=== PATIENT | male | born 1985 | race American Indian/Alaskan Native ===

== ENCOUNTER 2016-10-27 22:18 | Emergency (ER) | payer SELFPAY ==
[2016-10-28 00:19] VITALS: BP 109/75
[2016-10-28 01:54] LABS: Bilirubin,Urine NEG (Negative); Blood,Urine NEG (Negative); Ketones,Urine NEG (Negative); Leukocyte Esterase,Urine NEG (Negative); Mucus,Urine 2+ /HPF; Nitrite,Urine NEG (Negative); Protein,Urine <15 mg/dL mg/dL (Negative)
--- NOTE | 2016-10-28 02:07 | Emergency Department Report ---
HPI - General Chief Complaint: Urogenital-Male Time Seen by Provider: 10/28/16 01:17 - HPI HPI: This is a 31-year-old male presents to ED complaining of penile discharge 4 days. Patient states he had a protective sex female vital weak ago and couple days ago she was tested positive for Trichomonasis. Patient states he came in to be treated. He denies fever/ chills/abdominal pain/penile pain/scrotum pain or swelling, dysuria, or blood in his urine ED Past Medical Hx - Past Medical History Additional medical history: ear issues - Social History Smoking Status: Never Smoker Substance Use Type: None - Medications Home Medications: Home Medications Medication Instructions Recorded Confirmed Last Taken Type HYDROcodone/APAP 5-325 [[place] 1 each PO Q6HR PRN #20 tablet 07/15/15 Unknown Rx 5/325] Promethazine [Phenergan TAB] 25 mg PO Q6HR PRN #20 tab 07/15/15 Unknown Rx Neomy/Polymyx B/Hc (Otic) Soln 4 drops OTIC TID #1 bottle 02/23/16 Unknown Rx [Cortisporin (Otic) Soln] ED Review of Systems ROS: Stated complaint: GROIN PAIN/W DISCHARGE Other details as noted in HPI Constitutional: denies: chills, fever Eyes: denies: eye pain, eye discharge, vision change ENT: denies: ear pain, throat pain Respiratory: denies: cough, shortness of breath, wheezing Cardiovascular: denies: chest pain, palpitations Endocrine: no symptoms reported Gastrointestinal: denies: abdominal pain, nausea, diarrhea Genitourinary: denies: urgency, dysuria Musculoskeletal: denies: back pain, joint swelling, arthralgia Skin: denies: rash, lesions Neurological: denies: headache, weakness, paresthesias Psychiatric: denies: anxiety, depression Hematological/Lymphatic: denies: easy bleeding, easy bruising Physical Exam - Physical Exam Vital Signs: Vital Signs 10/28/16 00:17 Temperature 98.4 F Pulse Rate 64 Respiratory 18 Rate Blood Pressure 109/75 [Right] O2 Sat by Pulse 99 Oximetry Physical Exam: GENERAL: Alert and oriented x3, no apparent distress, Normal Gait, atraumatic. HEAD: Head is normocephalic and a-traumatic. LUNGS: Symetrical with respiration, No wheezing, no rales or crackles, CTAB. HEART: S1, S2 present, regular rate and rhythm without murmur, no rubs, no gallops. ABDOMEN: No organomegaly was noted,Positive bowel sounds, soft, and non- distended. . Nontender to palpation on all Quadrants, NO CVA tenderness. UROGENITAL: No scrotal mass, Scrotum non tender to palpation bilaterally, no hernia, no scars or penile discharge. SKIN: Warm and dry, No lesions, No ulceration or induration present. ED Course Vital Signs 10/28/16 00:17 Temperature 98.4 F Pulse Rate 64 Respiratory 18 Rate Blood Pressure 109/75 [Right] O2 Sat by Pulse 99 Oximetry ED Medical Decision Making - Medical Decision Making 31-year-old male presents with STD exposure. ED course: Urinanalysis and gonorrhea and Chlamydia cultures obtained. Urinalysis positive negative Patient received Flagyl 2 g. in the ED for treatment of trichomoniasis Discussed with patient possible STD due to exposure. Discussed with patient findings and treatment Discussed treatment of trichomoniasis patient is to abstain from sex 7-10 days as treatment. Discussed the follow-up with the health department for further STD testing. Patient's alert and oriented times 3. Vital signs are normal patient is in no acute discharge. Patient will be discharged home with instructions. Critical care attestation.: If time is entered above; I have spent that time in minutes in the direct care of this critically ill patient, excluding procedure time. ED Disposition Clinical Impression: STD exposure Disposition: DC-01 TO HOME OR SELFCARE Is pt being admited?: No Does the pt Need Aspirin: No Condition: Stable Instructions: Trichomoniasis (ED), Safe Sex (ED), Sexually Transmitted Diseases (ED) Referrals: PRIMARY CARE, [Primary Care Provider] - 3-5 Days [facility] [Outside] - 3-5 Days [facility] [Outside] - 3-5 Days [facility] [Outside] - 3-5 Days Forms: Work/School Release Form(ED) Time of Disposition: 02:11
[2016-10-28] MEDS ORDERED: FLAGYL PO ONE (02:08)
== END 2016-10-28 02:25 | disposition home or self-care (01) ==
LOC: ED 22:18
DX: Z20.2 Contact with and (suspected) exposure to infections with a predominantly sexual mode of transmission (principal)
CPT/HCPCS: 81001; 99283

== ENCOUNTER 2016-11-07 01:14 | Emergency (ER) | payer SELFPAY ==
[2016-11-07 01:19] VITALS: BP 121/82
--- NOTE | 2016-11-07 03:25 | Emergency Department Report ---
ED ENT HPI - General Chief complaint: Earache Stated complaint: RT EARACHE Time Seen by Provider: 11/07/16 02:47 Source: patient Mode of arrival: Ambulatory Limitations: No Limitations - History of Present Illness Initial comments: This is a 31-year-old male that presents with right ear pain x1 day. Patient describes ear pain as throbbing with a level of a 10/10. Patient denies sick contact. Denies fever, chills, decreased hearing, stiff neck, headache, CP, SOB , numbness, tingling, or abd pain. MD complaint: ear pain (right) -: Gradual, days(s) (1) Location: R ear Severity: moderate Severity scale (0 -10): 10 Quality: other (throbbing) Consistency: constant Improves with: none Worsens with: none Associated Symptoms: denies: fever, cough, gum swelling, toothache, pain with swallowing, sore throat, tinnitus, hearing loss, discharge from ear, rhinorrhea - Related Data Previous Rx's Medication Instructions Recorded Last Taken Type HYDROcodone/APAP 5-325 [[place] 1 each PO Q6HR PRN #20 tablet 07/15/15 Unknown Rx 5/325] Promethazine [Phenergan TAB] 25 mg PO Q6HR PRN #20 tab 07/15/15 Unknown Rx Neomy/Polymyx B/Hc (Otic) Soln 4 drops OTIC TID #1 bottle 02/23/16 Unknown Rx [Cortisporin (Otic) Soln] Azithromycin [Zithromax Z-ADAM] 250 mg PO DAILY #6 tablet 11/07/16 Unknown Rx Allergies Allergy/AdvReac Type Severity Reaction Status Date / Time Penicillins AdvReac Shortness Verified 03/21/14 16:23 of Breath ED Dental HPI - General Chief complaint: Earache Stated complaint: RT EARACHE Time Seen by Provider: 11/07/16 02:47 Source: patient Mode of arrival: Ambulatory Limitations: No Limitations - Related Data Previous Rx's Medication Instructions Recorded Last Taken Type HYDROcodone/APAP 5-325 [[place] 1 each PO Q6HR PRN #20 tablet 07/15/15 Unknown Rx 5/325] Promethazine [Phenergan TAB] 25 mg PO Q6HR PRN #20 tab 07/15/15 Unknown Rx Neomy/Polymyx B/Hc (Otic) Soln 4 drops OTIC TID #1 bottle 02/23/16 Unknown Rx [Cortisporin (Otic) Soln] Azithromycin [Zithromax Z-ADAM] 250 mg PO DAILY #6 tablet 11/07/16 Unknown Rx Allergies Allergy/AdvReac Type Severity Reaction Status Date / Time Penicillins AdvReac Shortness Verified 03/21/14 16:23 of Breath ED Review of Systems ROS: Stated complaint: RT EARACHE Other details as noted in HPI Constitutional: denies: chills, fever Eyes: denies: eye pain, eye discharge, vision change ENT: denies: ear pain, throat pain Respiratory: denies: cough, shortness of breath, wheezing Cardiovascular: denies: chest pain, palpitations Endocrine: no symptoms reported Gastrointestinal: denies: abdominal pain, nausea, diarrhea Genitourinary: denies: urgency, dysuria Musculoskeletal: denies: back pain, joint swelling, arthralgia Skin: denies: rash, lesions Neurological: denies: headache, weakness, paresthesias Psychiatric: denies: anxiety, depression Hematological/Lymphatic: denies: easy bleeding, easy bruising ED Past Medical Hx - Past Medical History Previous Medical History?: Yes Additional medical history: ear issues - Surgical History Past Surgical History?: No - Social History Smoking Status: Never Smoker Substance Use Type: None - Medications Home Medications: Home Medications Medication Instructions Recorded Confirmed Last Taken Type HYDROcodone/APAP 5-325 [[place] 1 each PO Q6HR PRN #20 tablet 07/15/15 Unknown Rx 5/325] Promethazine [Phenergan TAB] 25 mg PO Q6HR PRN #20 tab 07/15/15 Unknown Rx Neomy/Polymyx B/Hc (Otic) Soln 4 drops OTIC TID #1 bottle 02/23/16 Unknown Rx [Cortisporin (Otic) Soln] Azithromycin [Zithromax Z-ADAM] 250 mg PO DAILY #6 tablet 11/07/16 Unknown Rx ED Physical Exam - General Limitations: No Limitations General appearance: alert, in no apparent distress - Head Head exam: Present: atraumatic, normocephalic, normal inspection - Eye Eye exam: Present: normal appearance, PERRL, EOMI. Absent: scleral icterus, conjunctival injection, nystagmus, periorbital swelling, periorbital tenderness Pupils: Present: normal accommodation - ENT ENT exam: Present: normal orophraynx, mucous membranes moist, normal external ear exam. Absent: TM's normal bilaterally - Expanded ENT Exam Expanded TM/Canal exam: Erythema: Right TM, Bulging: Right TM, Cerumen Impaction: Right TM, Left TM Mouth exam: Present: normal external inspection. Absent: drooling, trismus, muffled voice, tongue normal, tongue elevation, laceration Teeth exam: Present: normal inspection Throat exam: Positive: normal inspection. Negative: tonsillar erythema, tonsillomegaly, tonsillar exudate, R peritonsillar mass, L peritonsillar mass - Neck Neck exam: Present: normal inspection, full ROM. Absent: tenderness, meningismus, lymphadenopathy, thyromegaly - Respiratory Respiratory exam: Present: normal lung sounds bilaterally. Absent: respiratory distress, wheezes, rales, rhonchi, stridor, chest wall tenderness, accessory muscle use, decreased breath sounds, prolonged expiratory - Cardiovascular Cardiovascular Exam: Present: regular rate, normal rhythm. Absent: systolic murmur, diastolic murmur, rubs, gallop - GI/Abdominal GI/Abdominal exam: Present: soft, normal bowel sounds. Absent: distended, tenderness, guarding, rebound, rigid, diminished bowel sounds - Rectal Rectal exam: Present: deferred - Extremities Exam Extremities exam: Present: normal inspection, full ROM, normal capillary refill. Absent: tenderness, pedal edema, joint swelling, calf tenderness - Back Exam Back exam: Present: normal inspection, full ROM. Absent: tenderness, CVA tenderness (R), CVA tenderness (L), muscle spasm, paraspinal tenderness, vertebral tenderness, rash noted - Neurological Exam Neurological exam: Present: alert, oriented X3, CN II-XII intact, normal gait - Psychiatric Psychiatric exam: Present: normal affect, normal mood - Skin Skin exam: Present: warm, dry, intact, normal color. Absent: rash ED Course Vital Signs 11/07/16 11/07/16 01:18 01:21 Temperature 98.3 F 98.3 F Pulse Rate 60 60 Respiratory 18 18 Rate Blood Pressure 121/82 Blood Pressure 121/82 [Right] O2 Sat by Pulse 98 98 Oximetry - Reevaluation(s) Reevaluation #1: 06/22/17 03:26 I used normal saline 20 ml leana ears to wash the cermun impaction and used an earwax remove and removed earwax to leana ears to evaluate TMs. ED Medical Decision Making - Medical Decision Making Ed course: This is a 31-year-old male that presents with otitis media, right 1- after my physical exam, pt received zpack due to PCN allergies 2- pt was referred to ENT if symptoms do not subside 3- at time time of discharge, the patient does not seem toxic or ill in appearance. No acute signs of distress noted. Patient agrees to discharge treatment plan of care. No further questions noted by the patient. Critical care attestation.: If time is entered above; I have spent that time in minutes in the direct care of this critically ill patient, excluding procedure time. ED Disposition Clinical Impression: Otitis media Qualifiers: Otitis media type: unspecified Chronicity: unspecified Laterality: right Qualified Code(s): H66.91 - Otitis media, unspecified, right ear Disposition: TO HOME OR SELFCARE Is pt being admited?: No Does the pt Need Aspirin: No Condition: Stable Instructions: Otitis Media (ED), Amoxicillin (By mouth) Additional Instructions: Follow-up with a ENT doctor if symptoms don't subside. Take full course of antibiotics as prescribed. Prescriptions: Azithromycin [Zithromax Z-ADAM] 250 mg PO DAILY #6 tablet Referrals: PRIMARY CARE, [Primary Care Provider] - 3-5 Days [facility] [Outside] - 3-5 Days [facility] [Outside] - 3-5 Days [facility] [Provider Group] - 3-5 Days Forms: Work/School Release Form(ED)
== END 2016-11-07 04:15 | disposition home or self-care (01) ==
LOC: ED 01:14
DX: H92.01 Otalgia, right ear (principal)

== ENCOUNTER 2018-02-08 14:10 | Emergency (ER) | payer OTHER ==
[2018-02-08 14:21] VITALS: BP 126/80
--- NOTE | 2018-02-08 16:50 | Emergency Department Report ---
HPI - General Chief Complaint: Extremity Injury, Lower Time Seen by Provider: 02/08/18 16:26 - HPI HPI: 33-year-old male presents to the emergency department with a complaint of possible infected ingrown toenails of each great toe. He has some swelling and discomfort to the side of the toenail on each great toe has been going on for the past few days. He denies any fever. He denies any bleeding or purulent discharge. He has no previous history of this. He did not take anything for his symptoms prior to presentation. ED Past Medical Hx - Past Medical History Previous Medical History?: No Additional medical history: ear issues - Surgical History Past Surgical History?: No - Social History Smoking Status: Never Smoker Substance Use Type: None - Medications Home Medications: Home Medications Medication Instructions Recorded Confirmed Last Taken Type HYDROcodone/APAP 5-325 [[place] 1 each PO Q6HR PRN #20 tablet 07/15/15 Unknown Rx 5/325] Promethazine [Phenergan TAB] 25 mg PO Q6HR PRN #20 tab 07/15/15 Unknown Rx Neomy/Polymyx B/Hc (Otic) Soln 4 drops OTIC TID #1 bottle 02/23/16 Unknown Rx [Cortisporin (Otic) Soln] Azithromycin [Zithromax Z-ADAM] 250 mg PO DAILY #6 tablet 11/07/16 Unknown Rx Sulfamethoxazole/Trimethoprim 1 each PO BID #14 tablet 02/08/18 Unknown Rx [Bactrim DS TAB] ED Review of Systems ROS: Stated complaint: GROW TOE NAIL/INFECTED PAIN Other details as noted in HPI Comment: All other systems reviewed and negative Constitutional: denies: chills, fever Eyes: denies: eye pain, eye discharge, vision change ENT: denies: ear pain, throat pain Respiratory: denies: cough, shortness of breath, wheezing Cardiovascular: denies: chest pain, palpitations Gastrointestinal: denies: abdominal pain, nausea, diarrhea Genitourinary: denies: urgency, dysuria Musculoskeletal: arthralgia. denies: back pain, joint swelling Skin: lesions. denies: pruritus Neurological: denies: headache, weakness, paresthesias Physical Exam - Physical Exam Vital Signs: Vital Signs 02/08/18 14:19 Temperature 98.0 F Pulse Rate 61 Respiratory 16 Rate Blood Pressure 126/80 O2 Sat by Pulse 98 Oximetry Physical Exam: GENERAL: The patient is well-developed well-nourished. HENT: Normocephalic. Atraumatic. Patient has moist mucous membranes. EYES: Extraocular motions are intact. NECK: Supple. Trachea is midline. CHEST/LUNGS: Clear to auscultation. There is no respiratory distress noted. HEART/CARDIOVASCULAR: Regular. There is no tachycardia. There is no murmur. ABDOMEN: There is no abdominal distention. SKIN: Skin is warm and dry. There is some swelling and mild fluctuance to the area next to the nail on the medial side of both great toes consistent with a paronychia. NEURO: The patient is awake, alert, and oriented. The patient is cooperative. The patient has no focal neurologic deficits. The patient has normal speech. MUSCULOSKELETAL: There is some mild tenderness to palpation to the medial portions of the great toes bilaterally secondary to paronychia's. ED Course Vital Signs 02/08/18 14:19 Temperature 98.0 F Pulse Rate 61 Respiratory 16 Rate Blood Pressure 126/80 O2 Sat by Pulse 98 Oximetry - I & D Right Toe Type of Procedure: Simple Site: medial portion of the bilateral great toes Blade Size: 11 I & D Procedure: betadine prep Progress: A very small puncture incision was made with 11 blade scalpel to the medial portion of each great toe where patient appears to have a paronychia. In both instances, manual pressure was held and I was able to squeeze out a small amount of purulent discharge. There was no significant bleeding. No obvious complications and the patient tolerated the procedure well. ED Medical Decision Making - Medical Decision Making Patient appears to have 2 small paronychia to the medial portion of each great toe. Small incision and drainage were done with a small amount of purulent drainage. No signs of cellulitis currently. Patient will be placed on some antibiotics. We discussed soaking the toes in warm water. He has been given referrals for podiatry. Vital signs stable including being afebrile. - Differential Diagnosis paronychia, cellulitis, ingrown toenail. Critical Care Time: No Critical care attestation.: If time is entered above; I have spent that time in minutes in the direct care of this critically ill patient, excluding procedure time. ED Disposition Clinical Impression: Paronychia of great toe of left foot, Paronychia of great toe of right foot Disposition: DC- TO HOME OR SELFCARE Is pt being admited?: No Condition: Stable Instructions: Paronychia (ED) Additional Instructions: Please soak the toes in warm, but not hot water, a couple times per day. You can use soap and water to clean the areas but then keep the area dry. I have given you a referral for 2 different podiatrists. Take the antibiotics as prescribed. Return to the emergency Department with any worsening of her symptoms or any acute distress. Prescriptions: Sulfamethoxazole/Trimethoprim [Bactrim DS TAB] 1 each PO BID #14 tablet Referrals: PRIMARY CARE, [Primary Care Provider] - 3-5 Days FELISA JAIMES DPM [Staff Physician] - 3-5 Days SOO ARGUETA MD [Staff Physician] - 3-5 Days Time of Disposition: 16:49
== END 2018-02-08 16:53 | disposition home or self-care (01) ==
LOC: ED 14:10
DX: L03.032 Cellulitis of left toe (principal); L03.031 Cellulitis of right toe
CPT/HCPCS: 99282

== ENCOUNTER 2019-08-03 21:47 | Emergency (ER) | payer SELFPAY ==
[2019-08-03] MEDS ORDERED: SODIUM CHLORIDE 0.9% 500 ML 500 ML IV ONE (22:06)
[2019-08-03 23:13] LABS: Bilirubin,Urine NEG (Negative); Blood,Urine NEG (Negative); Color,Urine Yellow (Yellow); Mucus,Urine 3+ /HPF; Urobilinogen,Urine < 2.0 mg/dL (<2.0)
--- NOTE | 2019-08-03 23:25 | XRay Report ---
CHEST 1 VIEW INDICATION: MAIN: possible Sepsis; c/o fever, cough, body aches x 3 days. denies any travel or known exposure to COVID-19. Temp 101. last tylenol or ibuprofen taken this morning.. COMPARISON: none FINDINGS: SUPPORT DEVICES: None. HEART / MEDIASTINUM: No significant abnormality. LUNGS / PLEURA: No significant pulmonary or pleural abnormality. No pneumothorax. ADDITIONAL FINDINGS: IMPRESSION: 1. No acute cardiopulmonary disease Signer Name: Carmelo Hobbs MD Signed: 08/03/2019 11:20 PM Workstation Name: [id number]
[2019-08-03 23:33] LABS: Basophils % (Auto) 0.8 % (0.0-1.8); Eosinophils # (Auto) 0.1 K/mm3 (0.0-0.4); Eosinophils % (Auto) 1.4 % (0.0-4.3); Hemoglobin 14.9 gm/dl (11.8-15.2); Lymphocytes % (Auto) 18.5 % (13.4-35.0); Mean Corpuscular HGB Conc 34 % (32-34); Mean Corpuscular Volume 89 fl (84-94); Monocytes # (Auto) 0.7 K/mm3 (0.0-0.8); Monocytes % (Auto) 13.2 % (0.0-7.3); Platelet Count 222 K/mm3 (140-440); Red Blood Count 4.93 M/mm3 (3.65-5.03); Red Cell Distribution Width 13.3 % (13.2-15.2)
[2019-08-03 23:35] LABS: Alanine Aminotransferase 16 units/L (7-56); Albumin 4.8 g/dL (3.9-5); BUN/Creatinine Ratio 10; Blood Urea Nitrogen 11 mg/dL (9-20); Calcium 9.5 mg/dL (8.4-10.2); Hemolysis Index 12
[2019-08-03 23:46] LABS: INR 1.11 (0.87-1.13)
[2019-08-04] MEDS ORDERED: SODIUM CHLORIDE 0.9% 1000 ML 1,000 ML IV ONE (01:13)
[2019-08-04] MEDS ORDERED: ONDANSETRON 4 MG/2 ML INJ IV ONE (01:13)
[2019-08-04] MEDS ORDERED: KETOROLAC 30 MG/1 ML INJ IV ONE (01:13)
--- NOTE | 2019-08-04 02:48 | Emergency Department Report ---
- General Chief Complaint: Fever Stated Complaint: HIGH TEMP/BODY PAIN Time Seen by Provider: 08/04/19 01:36 Source: patient Mode of arrival: Ambulatory Limitations: No Limitations - History of Present Illness MD Complaint: fever, sore throat -: Gradual Severity: mild Quality: dull Consistency: constant Improves With: nothing Worsens With: nothing Associated Symptoms: rhinorrhea, nasal congestion, sore throat. denies: abdominal pain, nausea, vomiting, confusion, right sweats, weight loss - Related Data Previous Rx's Medication Instructions Recorded Last Taken Type HYDROcodone/APAP 5-325 [[place] 1 each PO Q6HR PRN #20 tablet 07/15/15 Unknown Rx 5/325] Promethazine [Phenergan TAB] 25 mg PO Q6HR PRN #20 tab 07/15/15 Unknown Rx Neomy/Polymyx B/Hc (Otic) Soln 4 drops OTIC TID #1 bottle 02/23/16 Unknown Rx [Cortisporin (Otic) Soln] Azithromycin [Zithromax Z-ADAM] 250 mg PO DAILY #6 tablet 11/07/16 Unknown Rx Sulfamethoxazole/Trimethoprim 1 each PO BID #14 tablet 02/08/18 Unknown Rx [Bactrim DS TAB] Chlorhexidine Mouthwash [Peridex] 15 ml MM BID #1 bottle 08/04/19 Unknown Rx Clarithromycin [Biaxin] 500 mg PO BID #14 tab 08/04/19 Unknown Rx Lidocaine Viscous 2% 5 ml MM Q3H PRN #120 udc 08/04/19 Unknown Rx guaiFENesin/CODEINE [Robitussin AC] 5 ml PO Q6H PRN #120 ml 08/04/19 Unknown Rx Allergies Allergy/AdvReac Type Severity Reaction Status Date / Time Penicillins AdvReac Shortness Verified 03/21/14 16:23 of Breath ED Review of Systems ROS: Stated complaint: HIGH TEMP/BODY PAIN Other details as noted in HPI Comment: All other systems reviewed and negative ED Past Medical Hx - Past Medical History Previous Medical History?: No Additional medical history: ear issues - Surgical History Past Surgical History?: No - Social History Smoking Status: Never Smoker Substance Use Type: None - Medications Home Medications: Home Medications Medication Instructions Recorded Confirmed Last Taken Type HYDROcodone/APAP 5-325 [[place] 1 each PO Q6HR PRN #20 tablet 07/15/15 Unknown Rx 5/325] Promethazine [Phenergan TAB] 25 mg PO Q6HR PRN #20 tab 07/15/15 Unknown Rx Neomy/Polymyx B/Hc (Otic) Soln 4 drops OTIC TID #1 bottle 02/23/16 Unknown Rx [Cortisporin (Otic) Soln] Azithromycin [Zithromax Z-ADAM] 250 mg PO DAILY #6 tablet 11/07/16 Unknown Rx Sulfamethoxazole/Trimethoprim 1 each PO BID #14 tablet 02/08/18 Unknown Rx [Bactrim DS TAB] Chlorhexidine Mouthwash [Peridex] 15 ml MM BID #1 bottle 08/04/19 Unknown Rx Clarithromycin [Biaxin] 500 mg PO BID #14 tab 08/04/19 Unknown Rx Lidocaine Viscous 2% 5 ml MM Q3H PRN #120 udc 08/04/19 Unknown Rx guaiFENesin/CODEINE [Robitussin AC] 5 ml PO Q6H PRN #120 ml 08/04/19 Unknown Rx ED Physical Exam - General Limitations: No Limitations General appearance: alert, in no apparent distress - Head Head exam: Present: atraumatic, normocephalic - Eye Eye exam: Present: normal appearance, PERRL, EOMI Pupils: Present: normal accommodation - ENT ENT exam: Present: mucous membranes moist, other (Pharynx red swollen no exudate. Lymphadenopathy noted.) - Neck Neck exam: Present: normal inspection, lymphadenopathy - Respiratory Respiratory exam: Present: normal lung sounds bilaterally. Absent: respiratory distress, wheezes, rhonchi, accessory muscle use, decreased breath sounds - Cardiovascular Cardiovascular Exam: Present: regular rate, normal rhythm. Absent: tachycardia, systolic murmur, diastolic murmur, rubs, gallop - GI/Abdominal GI/Abdominal exam: Present: soft, normal bowel sounds - Rectal Rectal exam: Present: deferred - Extremities Exam Extremities exam: Present: normal inspection - Back Exam Back exam: Present: normal inspection - Neurological Exam Neurological exam: Present: alert, oriented X3 - Psychiatric Psychiatric exam: Present: normal affect, normal mood - Skin Skin exam: Present: warm, dry, intact, normal color. Absent: rash ED Course Vital Signs 08/03/19 21:55 Temperature 101.0 F H Pulse Rate 113 H Respiratory 20 Rate Blood Pressure 142/89 O2 Sat by Pulse 99 Oximetry ED Medical Decision Making - Lab Data Result diagrams: 08/03/19 22:40 08/03/19 22:40 Critical care attestation.: If time is entered above; I have spent that time in minutes in the direct care of this critically ill patient, excluding procedure time. ED Disposition Clinical Impression: Pharyngitis Disposition: DC-01 TO HOME OR SELFCARE Is pt being admited?: No Does the pt Need Aspirin: No Condition: Stable Instructions: Pharyngitis (ED) Prescriptions: Clarithromycin [Biaxin] 500 mg PO BID #14 tab Lidocaine Viscous 2% 5 ml MM Q3H PRN #120 udc PRN Reason: Pain, Moderate (4-6) Chlorhexidine Mouthwash [Peridex] 15 ml MM BID #1 bottle guaiFENesin/CODEINE [Robitussin AC] 5 ml PO Q6H PRN #120 ml PRN Reason: Cough Referrals: PRIMARY CARE, [Primary Care Provider] - 3-5 Days
[2019-08-04 02:57] VITALS: BP 111/65
== END 2019-08-04 02:55 | disposition home or self-care (01) ==
LOC: ED 21:47
DX: J02.9 Acute pharyngitis, unspecified (principal); Z79.899 Other long term (current) drug therapy; Z88.0 Allergy status to penicillin
CPT/HCPCS: 36415; 71045; 80053; 81001; 82140; 82805; 85025; 85610; 87040; 87086; 93005; 93010; 96374; 96375; 99284; J1885; J2405; J7030

== ENCOUNTER 2019-08-04 18:23 | Emergency (ER) | payer SELFPAY ==
--- NOTE | 2019-08-04 18:32 | Event Note ---
ED Screening Note Date of service: 08/04/19 Time: 18:31 ED Screening Note: 34 y o male returns fro fever and body aches was treated for strep yesterday taking meds as prescribed, states worse fever and n/v This initial assessment/diagnostic orders/clinical plan/treatment(s) is/are subject to change based on patients health status, clinical progression and re- assessment by fellow clinical providers in the ED. Further treatment and workup at subsequent clinical providers discretion. Patient/guardian urged not to elope from the ED as their condition may be serious if not clinically assessed and managed. Initial orders include: rapid flu IVF motrin 800 in triage
[2019-08-04] MEDS ORDERED: SODIUM CHLORIDE 0.9% 1000 ML IV SOLN IV ONE (18:34)
[2019-08-04] MEDS ORDERED: IBUPROFEN 800 MG TAB ONE (18:40)
[2019-08-04] MEDS ORDERED: IBUPROFEN 800 MG TAB PO ONE (19:02)
[2019-08-04 19:06] LABS: Basophils % (Auto) 0.5 % (0.0-1.8); Eosinophils % (Auto) 0.1 % (0.0-4.3); Hematocrit 42.8 % (35.5-45.6); Hemoglobin 14.4 gm/dl (11.8-15.2); Lymphocytes # (Auto) 1.1 K/mm3 (1.2-5.4); Lymphocytes % (Auto) 17.7 % (13.4-35.0); Mean Corpuscular HGB Conc 34 % (32-34); Mean Corpuscular Volume 88 fl (84-94); Monocytes # (Auto) 0.9 K/mm3 (0.0-0.8); Monocytes % (Auto) 15.5 % (0.0-7.3); Platelet Count 192 K/mm3 (140-440); Red Blood Count 4.85 M/mm3 (3.65-5.03); Red Cell Distribution Width 13.2 % (13.2-15.2)
[2019-08-04 19:28] LABS: Alanine Aminotransferase 15 units/L (7-56); Albumin 4.3 g/dL (3.9-5); BUN/Creatinine Ratio 10; Blood Urea Nitrogen 11 mg/dL (9-20); Calcium 8.9 mg/dL (8.4-10.2); Hemolysis Index 5
[2019-08-04 21:49] VITALS: BP 120/83
--- NOTE | 2019-08-04 22:10 | Emergency Department Report ---
Chief Complaint: Fever Stated Complaint: COUGH/FEVER/NAUSEA VOMITING/DIARRHEA Time Seen by Provider: 08/04/19 21:29 - HPI History of Present Illness: This is a 34 y o male who returns to the ED today after being evaluated yesterday for pharyngitis. Patient returns today stating that fever and body aches is worsened. Patient denies taking any Motrin or Tylenol or any medication for symptomatic relief. Patient states he just picked up his prescription and is only taking 1 dose. Patient denies any new symptoms. - ROS Review of Systems: As noted in HPI - Exam Vital Signs: Vital Signs 08/04/19 08/04/19 08/04/19 18:29 19:07 21:49 Temperature 102.8 F H Pulse Rate 94 H 72 Respiratory 16 18 Rate Blood Pressure 120/83 Blood Pressure 142/88 [Right] O2 Sat by Pulse 99 100 Oximetry 08/04/19 21:50 Temperature 98.9 F Pulse Rate Respiratory 20 Rate Blood Pressure Blood Pressure [Right] O2 Sat by Pulse Oximetry Physical Exam: GENERAL: Alert and oriented x3, no apparent distress, Normal Gait, atraumatic. MOUTH:Mouth is well hydrated and without lesions. Tonsils erythematous and sligh tly swollen, Uvula midline, Tongue not elevated. Mucous membranes are moist. Posterior pharynx clear, no exudate or lesions. Patent airways. NECK: Supple. Non edematous, No carotid bruits. No lymphadenopathy or thyromegaly. No C-spine tenderness LUNGS: Symetrical with respiration, No wheezing, no rales or crackles, CTAB. HEART: S1, S2 present, regular rate and rhythm without murmur, no rubs, no gallops. Non tender to palpation SKIN: Warm and dry, No lesions, No ulceration or induration present. MSE screening note: Focused history and physical exam performed. Due to findings the following was ordered: ED Medical Decision Making - Lab Data Result diagrams: 08/04/19 18:37 08/04/19 18:37 Laboratory Last Values WBC 6.0 K/mm3 (4.5-11.0) 08/04/19 18:37 RBC 4.85 M/mm3 (3.65-5.03) 08/04/19 18:37 Hgb 14.4 gm/dl (11.8-15.2) 08/04/19 18:37 Hct 42.8 % (35.5-45.6) 08/04/19 18:37 MCV 88 fl (84-94) 08/04/19 18:37 MCH 30 pg (28-32) 08/04/19 18:37 MCHC 34 % (32-34) 08/04/19 18:37 RDW 13.2 % (13.2-15.2) 08/04/19 18:37 Plt Count 192 K/mm3 (140-440) 08/04/19 18:37 Lymph % (Auto) 17.7 % (13.4-35.0) 08/04/19 18:37 [place] % (Auto) 15.5 % (0.0-7.3) H 08/04/19 18:37 Eos % (Auto) 0.1 % (0.0-4.3) 08/04/19 18:37 Baso % (Auto) 0.5 % (0.0-1.8) 08/04/19 18:37 Lymph # 1.1 K/mm3 (1.2-5.4) L 08/04/19 18:37 [place] # 0.9 K/mm3 (0.0-0.8) H 08/04/19 18:37 Eos # 0.0 K/mm3 (0.0-0.4) 08/04/19 18:37 Baso # 0.0 K/mm3 (0.0-0.1) 08/04/19 18:37 Seg Neutrophils % 66.2 % (40.0-70.0) 08/04/19 18:37 Seg Neutrophils # 4.0 K/mm3 (1.8-7.7) 08/04/19 18:37 Sodium 138 mmol/L (137-145) 08/04/19 18:37 Potassium 4.2 mmol/L (3.6-5.0) 08/04/19 18:37 Chloride 100.7 mmol/L (98-107) 08/04/19 18:37 Carbon Dioxide 21 mmol/L (22-30) L 08/04/19 18:37 Anion Gap 21 mmol/L 08/04/19 18:37 BUN 11 mg/dL (9-20) 08/04/19 18:37 Creatinine 1.1 mg/dL (0.8-1.5) 08/04/19 18:37 Estimated GFR > 60 ml/min 08/04/19 18:37 BUN/Creatinine Ratio 10 % 08/04/19 18:37 Glucose 94 mg/dL (75-100) 08/04/19 18:37 Lactic Acid 1.40 mmol/L (0.7-2.0) 08/04/19 18:37 Calcium 8.9 mg/dL (8.4-10.2) 08/04/19 18:37 Total Bilirubin 0.40 mg/dL (0.1-1.2) 08/04/19 18:37 AST 23 units/L (5-40) 08/04/19 18:37 ALT 15 units/L (7-56) 08/04/19 18:37 Alkaline Phosphatase 70 units/L (35-129) 08/04/19 18:37 Total Protein 7.9 g/dL (6.3-8.2) 08/04/19 18:37 Albumin 4.3 g/dL (3.9-5) 08/04/19 18:37 Albumin/Globulin Ratio 1.2 % 08/04/19 18:37 Influenza A (Rapid) Negative (Negative) 08/04/19 Unknown Influenza B (Rapid) Negative (Negative) 08/04/19 Unknown - Medical Decision Making This 34-year-old male who returns for fever from pharyngitis. After discussion with patient patient has not started his antibiotic dose. Patient also was not taking any anti-inflammatories for fever or pain. I discussed with the patient he needs to take Motrin or Tylenol for pain or fever. Flu test was done in the ER today which was negative. Discussed with patient that pharyngitis is infectious process and will cause fever. Discussed with patient to take his medication as prescribed and follow- up with the primary care physician. All labs today in the ED were normal. Discussed all these findings with the patient. I reviewed exams reports and lab findings from yesterday's visit. Patient is stable and okay to go home vital signs are normal ED Disposition for MSE Clinical Impression: Pharyngitis Disposition: - TO HOME OR SELFCARE Is pt being admited?: No Does the pt Need Aspirin: No Condition: Stable Instructions: Pharyngitis (ED) Additional Instructions: Make sure to follow up with the primary care physician as discussed. Take all your medications as you've been prescribed yesterday. Make sure you take Tylenol or Motrin for fever. You will get a fever because you have a throat infection. If you have any worsening symptoms or develop new symptoms please return to ED immediately. Referrals: PRIMARY CARE, [Primary Care Provider] - 3-5 Days [facility] [Outside] - 3-5 Days Forms: Work/School Release Form(ED) Time of Disposition: 22:21
== END 2019-08-04 22:25 | disposition home or self-care (01) ==
LOC: ED 18:23
DX: J02.9 Acute pharyngitis, unspecified (principal)
CPT/HCPCS: 36415; 80053; 82140; 85025; 87040; 87400; 99284

== ENCOUNTER 2020-07-30 23:41 | Emergency (ER) | payer SELFPAY ==
[2020-07-31 01:39] VITALS: BP 106/52
--- NOTE | 2020-07-31 01:46 | Emergency Department Report ---
- General Chief Complaint: Dyspnea/Respdistress Stated Complaint: MERLINE FEVER Time Seen by Provider: 07/31/20 01:41 Source: patient, EMS Mode of arrival: Ambulatory Limitations: No Limitations - History of Present Illness Initial Comments: 35-year-old -[place] male presents to the emergency room via EMS for sore throat headache and fever. Patient states his temperature is 103.3 that he checked at home and took Motrin last night about 10 PM. Patient does admit to nasal congestion and head pressure. Patient reports his has a sore throat. [place] MD Complaint: fever, sore throat, other (sob ) Onset/Timin -: days(s) Severity: moderate Severity scale (0 -10): 7 Quality: sharp Consistency: constant Improves With: NSAID Worsens With: nothing Associated Symptoms: fever, nasal congestion, sore throat, shortness of breath. denies: chills Treatments Prior to Arrival: Ibuprofen - Related Data Previous Rx's Medication Instructions Recorded Last Taken Type HYDROcodone/APAP 5-325 [[place] 1 each PO Q6HR PRN #20 tablet 07/15/15 Unknown Rx 5/325] Promethazine [Phenergan TAB] 25 mg PO Q6HR PRN #20 tab 07/15/15 Unknown Rx Neomy/Polymyx B/Hc (Otic) Soln 4 drops OTIC TID #1 bottle 02/23/16 Unknown Rx [Cortisporin (Otic) Soln] Azithromycin [Zithromax Z-ADAM] 250 mg PO DAILY #6 tablet 11/07/16 Unknown Rx Sulfamethoxazole/Trimethoprim 1 each PO BID #14 tablet 02/08/18 Unknown Rx [Bactrim DS TAB] Chlorhexidine Mouthwash [Peridex] 15 ml MM BID #1 bottle 08/04/19 Unknown Rx Clarithromycin [Biaxin] 500 mg PO BID #14 tab 08/04/19 Unknown Rx Lidocaine Viscous 2% 5 ml MM Q3H PRN #120 udc 08/04/19 Unknown Rx guaiFENesin/CODEINE [Robitussin AC] 5 ml PO Q6H PRN #120 ml 08/04/19 Unknown Rx Clindamycin [Clindamycin CAP] 300 mg PO Q8H 10 Days #30 cap 07/31/20 Unknown Rx Allergies Allergy/AdvReac Type Severity Reaction Status Date / Time Penicillins AdvReac Shortness Verified 03/21/14 16:23 of Breath ED Review of Systems ROS: Stated complaint: MERLINE FEVER Other details as noted in HPI Comment: All other systems reviewed and negative ED Past Medical Hx - Past Medical History Previous Medical History?: Yes Additional medical history: ear issues - Surgical History Past Surgical History?: No - Social History Smoking Status: Never Smoker - Medications Home Medications: Home Medications Medication Instructions Recorded Confirmed Last Taken Type HYDROcodone/APAP 5-325 [[place] 1 each PO Q6HR PRN #20 tablet 07/15/15 Unknown Rx 5/325] Promethazine [Phenergan TAB] 25 mg PO Q6HR PRN #20 tab 07/15/15 Unknown Rx Neomy/Polymyx B/Hc (Otic) Soln 4 drops OTIC TID #1 bottle 02/23/16 Unknown Rx [Cortisporin (Otic) Soln] Azithromycin [Zithromax Z-ADAM] 250 mg PO DAILY #6 tablet 11/07/16 Unknown Rx Sulfamethoxazole/Trimethoprim 1 each PO BID #14 tablet 02/08/18 Unknown Rx [Bactrim DS TAB] Chlorhexidine Mouthwash [Peridex] 15 ml MM BID #1 bottle 08/04/19 Unknown Rx Clarithromycin [Biaxin] 500 mg PO BID #14 tab 08/04/19 Unknown Rx Lidocaine Viscous 2% 5 ml MM Q3H PRN #120 udc 08/04/19 Unknown Rx guaiFENesin/CODEINE [Robitussin AC] 5 ml PO Q6H PRN #120 ml 08/04/19 Unknown Rx Clindamycin [Clindamycin CAP] 300 mg PO Q8H 10 Days #30 cap 07/31/20 Unknown Rx ED Physical Exam - General Limitations: No Limitations General appearance: alert, in no apparent distress - Head Head exam: Present: atraumatic, normocephalic - Eye Eye exam: Present: normal appearance - Expanded ENT Exam Expanded Throat exam: Positive: tonsillar erythema, tonsillomegaly, tonsillar exudate - Neck Neck exam: Present: full ROM, lymphadenopathy - Respiratory Respiratory exam: Absent: accessory muscle use - Extremities Exam Extremities exam: Present: normal inspection, full ROM - Back Exam Back exam: Present: normal inspection, full ROM - Neurological Exam Neurological exam: Present: alert, oriented X3, normal gait - Psychiatric Psychiatric exam: Present: normal affect, normal mood - Skin Skin exam: Present: warm, dry, intact, normal color. Absent: rash ED Course Vital Signs 07/31/20 01:33 Temperature 98.6 F Pulse Rate 93 H Respiratory 18 Rate Blood Pressure 106/52 O2 Sat by Pulse 96 Oximetry ED Medical Decision Making - Medical Decision Making 35-year-old -[place] male presents to the emergency room via EMS for sore throat headache and fever. Patient states his temperature is 103.3 that he checked at home and took Motrin last night about 10 PM. Patient does admit to nasal congestion and head pressure. Patient reports his has a sore throat. [place] Patient will be treated for strep pharyngitis as he has tonsillar hypertrophy with erythematous and exudate. Patient will be treated with clindamycin as he has a penicillin allergy. Discussed with patient to continue with Tylenol and ibuprofen. Warm salt gargles. Critical care attestation.: If time is entered above; I have spent that time in minutes in the direct care of this critically ill patient, excluding procedure time. ED Disposition Clinical Impression: Streptococcal pharyngitis Disposition: DC-01 TO HOME OR SELFCARE Is pt being admited?: No Does the pt Need Aspirin: No Condition: Stable Instructions: Strep Throat, Adult, [id number] Additional Instructions: Complete antibiotics as prescribed. Tylenol or ibuprofen as needed for pain management and fever control. Increase your fluid intake advance your diet as tolerated. Gargles will help. Follow-up with your primary care provider in the next 3 to 5 days. Prescriptions: Clindamycin [Clindamycin CAP] 300 mg PO Q8H 10 Days #30 cap Referrals: PRIMARY CARE, [Primary Care Provider] - 3-5 Days Forms: Work/School Release Form(ED)
== END 2020-07-31 02:05 | disposition home or self-care (01) ==
LOC: ED 23:41
DX: J02.0 Streptococcal pharyngitis (principal); Z79.899 Other long term (current) drug therapy; Z88.0 Allergy status to penicillin
CPT/HCPCS: 99283

== ENCOUNTER 2021-11-27 18:16 | Emergency (ER) | payer OTHER ==
[2021-11-27 18:36] VITALS: BP 138/90
[2021-11-27 19:45] LABS: Hematocrit 45.9 % (35.5-45.6); Hemoglobin 14.8 gm/dl (11.8-15.2); Mean Corpuscular HGB Conc 32 % (32-34); Mean Corpuscular Volume 91 fl (84-94); Platelet Count 220 K/mm3 (140-440); Red Blood Count 5.06 M/mm3 (3.65-5.03); Red Cell Distribution Width 13.8 % (13.2-15.2)
[2021-11-27 20:09] LABS: INR 0.97 (0.87-1.13)
[2021-11-27 20:12] LABS: Alanine Aminotransferase 14 units/L (7-56); Albumin 4.5 g/dL (3.9-5); BUN/Creatinine Ratio 10; Blood Urea Nitrogen 10 mg/dL (9-20); Calcium 9.1 mg/dL (8.4-10.2); Hemolysis Index 10
[2021-11-27 20:14] LABS: Partial Thromboplastin Time 27.7 Sec. (24.2-36.6)
--- NOTE | 2021-11-27 20:53 | XRay Report ---
XR chest routine 2V INDICATION / CLINICAL INFORMATION: Chest Pain. COMPARISON: 08/03/2019 FINDINGS: SUPPORT DEVICES: None. HEART /PULMONARY VASCULATURE: No significant abnormality. LUNGS / PLEURA: No significant pulmonary or pleural abnormality. No pneumothorax. ADDITIONAL FINDINGS: No significant additional findings. IMPRESSION: 1. No acute findings. Signer Name: Osmin Whyte MD Signed: 11/27/2021 8:48 PM Workstation Name: [email or web address] acquired by [email or web address]
[2021-11-27 21:00] LABS: Basophils % (Manual) 0 % (0.0-1.8); Platelet Estimate Consistent w Auto; RBC Morphology Normal; Smudge Cells Rare; Total Cells Counted 100
--- NOTE | 2021-11-28 02:20 | Emergency Department Report ---
ED Chest Pain HPI - General Chief Complaint: Chest Pain Stated Complaint: CHEST PAIN Time Seen by Provider: 11/28/21 02:09 Source: patient Mode of arrival: Ambulatory Limitations: No Limitations - History of Present Illness Initial Comments: Patient 36-year-old male who presents with palpitations x2 episodes over the past month. Last episode 1 week ago. Patient denies fevers or chills there is no nausea vomiting there is been no lightheadedness or dizziness. Patient denies substance patient denies smoking. Is been no fevers no chills no productive cough. Patient currently not taking any medications. Patient denies PND there is no no other complaint. Symptoms are exacerbated by nothing. Symptoms are relieved by nothing. Patient denies chest pain no palpitations no nausea vomiting no other symptoms at this time. Patient appears well-nourished well-hydrated and nontoxic. - Related Data Previous Rx's Medication Instructions Recorded Last Taken Type HYDROcodone/APAP 5-325 [[place] 1 each PO Q6HR PRN #20 tablet 07/15/15 Unknown Rx 5/325] Promethazine [Phenergan TAB] 25 mg PO Q6HR PRN #20 tab 07/15/15 Unknown Rx Neomy/Polymyx B/Hc (Otic) Soln 4 drops OTIC TID #1 bottle 02/23/16 Unknown Rx [Cortisporin (Otic) Soln] Azithromycin [Zithromax Z-ADAM] 250 mg PO DAILY #6 tablet 11/07/16 Unknown Rx Sulfamethoxazole/Trimethoprim 1 each PO BID #14 tablet 02/08/18 Unknown Rx [Bactrim DS TAB] Chlorhexidine Mouthwash [Peridex] 15 ml MM BID #1 bottle 08/04/19 Unknown Rx Clarithromycin [Biaxin] 500 mg PO BID #14 tab 08/04/19 Unknown Rx Lidocaine Viscous 2% 5 ml MM Q3H PRN #120 udc 08/04/19 Unknown Rx guaiFENesin/CODEINE [Robitussin AC] 5 ml PO Q6H PRN #120 ml 08/04/19 Unknown Rx Clindamycin [Clindamycin CAP] 300 mg PO Q8H 10 Days #30 cap 07/31/20 Unknown Rx Ibuprofen [Motrin 800 MG tab] 800 mg PO Q8HR PRN #30 tablet 11/28/21 Unknown Rx Allergies Allergy/AdvReac Type Severity Reaction Status Date / Time Penicillins AdvReac Shortness Verified 11/27/21 18:37 of Breath Heart Score - HEART Score History: Slightly suspicious EKG: Normal Age: < 45 Risk factors: No known risk factors Troponin: < normal limit HEART Score: 0 - EKG Read Time Time EKG Completed: 18:40 EKG Read Time: 18:45 ED Review of Systems ROS: Stated complaint: CHEST PAIN Other details as noted in HPI Constitutional: denies: chills, fever Eyes: denies: eye pain, eye discharge, vision change ENT: denies: ear pain, throat pain Respiratory: denies: cough, shortness of breath, wheezing Cardiovascular: palpitations. denies: chest pain, dyspnea on exertion, syncope, paroxysmal nocturnal dyspnea Endocrine: no symptoms reported Gastrointestinal: denies: abdominal pain, nausea, vomiting, diarrhea Genitourinary: as per HPI Musculoskeletal: denies: back pain, joint swelling, arthralgia Skin: denies: rash, lesions Neurological: denies: headache, weakness, paresthesias, vertigo Psychiatric: denies: anxiety, depression Hematological/Lymphatic: denies: easy bleeding, easy bruising ED Past Medical Hx - Past Medical History Additional medical history: ear issues - Social History Smoking Status: Never Smoker - Medications Home Medications: Home Medications Medication Instructions Recorded Confirmed Last Taken Type HYDROcodone/APAP 5-325 [[place] 1 each PO Q6HR PRN #20 tablet 07/15/15 Unknown Rx 5/325] Promethazine [Phenergan TAB] 25 mg PO Q6HR PRN #20 tab 07/15/15 Unknown Rx Neomy/Polymyx B/Hc (Otic) Soln 4 drops OTIC TID #1 bottle 02/23/16 Unknown Rx [Cortisporin (Otic) Soln] Azithromycin [Zithromax Z-ADAM] 250 mg PO DAILY #6 tablet 11/07/16 Unknown Rx Sulfamethoxazole/Trimethoprim 1 each PO BID #14 tablet 02/08/18 Unknown Rx [Bactrim DS TAB] Chlorhexidine Mouthwash [Peridex] 15 ml MM BID #1 bottle 08/04/19 Unknown Rx Clarithromycin [Biaxin] 500 mg PO BID #14 tab 08/04/19 Unknown Rx Lidocaine Viscous 2% 5 ml MM Q3H PRN #120 udc 08/04/19 Unknown Rx guaiFENesin/CODEINE [Robitussin AC] 5 ml PO Q6H PRN #120 ml 08/04/19 Unknown Rx Clindamycin [Clindamycin CAP] 300 mg PO Q8H 10 Days #30 cap 07/31/20 Unknown Rx Ibuprofen [Motrin 800 MG tab] 800 mg PO Q8HR PRN #30 tablet 11/28/21 Unknown Rx ED Physical Exam - General Limitations: No Limitations General appearance: alert, in no apparent distress - Head Head exam: Present: normocephalic, normal inspection - Eye Eye exam: Present: normal appearance, EOMI Pupils: Present: normal accommodation - ENT ENT exam: Present: mucous membranes moist - Neck Neck exam: Present: normal inspection - Respiratory Respiratory exam: Present: normal lung sounds bilaterally. Absent: respiratory distress, wheezes, stridor, chest wall tenderness - Cardiovascular Cardiovascular Exam: Present: regular rate, normal rhythm, normal heart sounds. Absent: systolic murmur, diastolic murmur, rubs, gallop - GI/Abdominal GI/Abdominal exam: Present: soft, normal bowel sounds. Absent: distended, tenderness - Rectal Rectal exam: Present: deferred - Extremities Exam Extremities exam: Present: normal inspection, full ROM, normal capillary refill - Back Exam Back exam: Present: normal inspection, full ROM. Absent: CVA tenderness (R), CVA tenderness (L) - Neurological Exam Neurological exam: Present: alert, oriented X3, CN II-XII intact, normal gait - Expanded Neurological Exam Expanded Patient oriented to: Present: person, place, time Speech: Present: fluid speech Best Eye Response ([place]): (4) open spontaneously Best Motor Response ([place]): (6) obeys commands Best Verbal Response ([place]): (5) oriented Jamin Total: 15 - Psychiatric Psychiatric exam: Present: normal affect, normal mood - Skin Skin exam: Present: warm, dry, intact, normal color. Absent: rash ED Course Vital Signs 11/27/21 18:34 Temperature 97.7 F Pulse Rate 84 Respiratory 18 Rate Blood Pressure 138/90 [Left] O2 Sat by Pulse 99 Oximetry ABDIFATAH score - Abdifatah Score Age > 65: (0) No Aspirin use within the Past 7 Days: (0) No 3 or more CAD Risk Factors: (0) No 2 or more Angina events in past 24 hrs: (0) No Known CAD with more than 50% Stenosis: (0) No Elevated Cardiac Markers: (0) No ST Deviation Greater than 0.5mm: (0) No ABDIFATAH Score: 0 ED Medical Decision Making - Lab Data Result diagrams: 11/27/21 18:52 11/27/21 18:52 Labs 11/27/21 11/27/21 11/27/21 18:52 18:52 18:52 WBC 4.3 L RBC 5.06 H Hgb 14.8 Hct 45.9 H MCV 91 MCH 29 MCHC 32 RDW 13.8 Plt Count 220 [place] % (Auto) Biological Sciences Instructor Add Manual Diff Complete Total Counted 100 Seg Neuts % (Manual) 57.0 Band Neutrophils % 0 Lymphocytes % (Manual) 24.0 Reactive Lymphs % (Man) 0 Monocytes % (Manual) 17.0 H Eosinophils % (Manual) 2.0 Basophils % (Manual) 0 Metamyelocytes % 0 Myelocytes % 0 Promyelocytes % 0 Blast Cells % 0 Nucleated RBC % Not Reportable Seg Neutrophils # Man 2.5 Band Neutrophils # 0.0 Lymphocytes # (Manual) 1.0 L Abs React Lymphs (Man) 0.0 Monocytes # (Manual) 0.7 Eosinophils # (Manual) 0.1 Basophils # (Manual) 0.0 Metamyelocytes # 0.0 Myelocytes # 0.0 Promyelocytes # 0.0 Blast Cells # 0.0 WBC Morphology Not Reportable Hypersegmented Neuts Not Reportable Hyposegmented Neuts Not Reportable Hypogranular Neuts Not Reportable Smudge Cells Rare Toxic Granulation Not Reportable Toxic Vacuolation Not Reportable Dohle Bodies Not Reportable Pelger-Huet Anomaly Not Reportable Janine Rods Not Reportable Platelet Estimate Consistent w auto Clumped Platelets Not Reportable Plt Clumps, EDTA Not Reportable Large Platelets Not Reportable Giant Platelets Not Reportable Platelet Satelliting Not Reportable Plt Morphology Comment Not Reportable RBC Morphology Normal Dimorphic RBCs Not Reportable Polychromasia Not Reportable Hypochromasia Not Reportable Poikilocytosis Not Reportable Anisocytosis Not Reportable Microcytosis Not Reportable Macrocytosis Not Reportable Spherocytes Not Reportable Pappenheimer Bodies Not Reportable Sickle Cells Not Reportable Target Cells Not Reportable Tear Drop Cells Not Reportable Ovalocytes Not Reportable Helmet Cells Not Reportable [place] Bodies Not Reportable Kaycee Rings Not Reportable [place] Cells Not Reportable Bite Cells Not Reportable Crenated Cell Not Reportable Elliptocytes Not Reportable Acanthocytes (Spur) Not Reportable Rouleaux Not Reportable Hemoglobin C Crystals Not Reportable Schistocytes Not Reportable Malaria parasites Not Reportable Estevan Bodies Not Reportable Hem Pathologist Commnt No PT 14.0 INR 0.97 APTT 27.7 Sodium Potassium Chloride Carbon Dioxide Anion Gap BUN Creatinine Estimated GFR BUN/Creatinine Ratio Glucose Calcium Total Bilirubin AST ALT Alkaline Phosphatase Troponin T < 0.010 Total Protein Albumin Albumin/Globulin Ratio 11/27/21 18:52 WBC RBC Hgb Hct MCV MCH MCHC RDW Plt Count [place] % (Auto) Add Manual Diff Total Counted Seg Neuts % (Manual) Band Neutrophils % Lymphocytes % (Manual) Reactive Lymphs % (Man) Monocytes % (Manual) Eosinophils % (Manual) Basophils % (Manual) Metamyelocytes % Myelocytes % Promyelocytes % Blast Cells % Nucleated RBC % Seg Neutrophils # Man Band Neutrophils # Lymphocytes # (Manual) Abs React Lymphs (Man) Monocytes # (Manual) Eosinophils # (Manual) Basophils # (Manual) Metamyelocytes # Myelocytes # Promyelocytes # Blast Cells # WBC Morphology Hypersegmented Neuts Hyposegmented Neuts Hypogranular Neuts Smudge Cells Toxic Granulation Toxic Vacuolation Dohle Bodies Pelger-Huet Anomaly Janine Rods Platelet Estimate Clumped Platelets Plt Clumps, EDTA Large Platelets Giant Platelets Platelet Satelliting Plt Morphology Comment RBC Morphology Dimorphic RBCs Polychromasia Hypochromasia Poikilocytosis Anisocytosis Microcytosis Macrocytosis Spherocytes Pappenheimer Bodies Sickle Cells Target Cells Tear Drop Cells Ovalocytes Helmet Cells [place] Bodies Kaycee Rings [place] Cells Bite Cells Crenated Cell Elliptocytes Acanthocytes ([place]) Rouleaux Hemoglobin C Crystals Schistocytes Malaria parasites Estevan Bodies Hem Pathologist Commnt PT INR APTT Sodium 137 Potassium 3.8 Chloride 102.3 Carbon Dioxide 25 Anion Gap 14 BUN 10 Creatinine 1.0 Estimated GFR > 60 BUN/Creatinine Ratio 10 Glucose 82 Calcium 9.1 Total Bilirubin 0.30 AST 19 ALT 14 Alkaline Phosphatase 73 Troponin T Total Protein 7.5 Albumin 4.5 Albumin/Globulin Ratio 1.5 - EKG Data EKG shows normal: sinus rhythm, axis, intervals, QRS complexes, ST-T waves Rate: normal - EKG Data When compared to previous EKG there are: previous EKG unavailable Interpretation: normal EKG (Normal sinus rhythm probable left atrial enlargement, ST elevation is probably normal early repole, no ST elevated RI interpreted by ED attending.) - Radiology Data Radiology results: report reviewed, image reviewed XR chest routine 2V INDICATION / CLINICAL INFORMATION: Chest Pain. COMPARISON: 08/03/2019 FINDINGS: SUPPORT DEVICES: None. HEART /PULMONARY VASCULATURE: No significant abnormality. LUNGS / PLEURA: No significant pulmonary or pleural abnormality. No pneumothorax. ADDITIONAL FINDINGS: No significant additional findings. IMPRESSION: 1. No acute findings. Signer Name: Lindy Whyte MD Signed: 11/27/2021 8:48 PM Workstation Name: [id number] Transcribed By: ML Dictated By: LINDY WHYTE MD Electronically Authenticated By: LINDY WHYTE MD Signed Date/Time: 11/27/212047 DD/ 47 TD/TT: - Medical Decision Making Labs noted normal, EKG sinus rhythm no ST elevated RI interpreted by ED attending, chest x-ray normal no infiltrates no opacities. Heart score 0 ABDIFATAH score 0 plan DC to home, NSAIDs as needed pain. Follow-up with primary care doctor in 2 to 3 days. Patient verbalized agreement understanding of discharge plan. Patient DC'd home in stable condition at this time. Critical care attestation.: If time is entered above; I have spent that time in minutes in the direct care of this critically ill patient, excluding procedure time. ED Disposition Clinical Impression: Palpitations Disposition: 01 HOME / SELF CARE / HOMELESS Is pt being admited?: No Does the pt Need Aspirin: No Condition: Stable Instructions: Palpitations, [id number] Additional Instructions: Take ibuprofen as needed for pain, follow-up with your primary care doctor in 2 to 3 days. Return to emergency department should symptoms worsen. Prescriptions: Ibuprofen [Motrin 800 MG tab] 800 mg PO Q8HR PRN #30 tablet PRN Reason: pain Referrals: DERECK GABRIEL MD [Staff Physician] - 3-5 Days Forms: Work/School Release Form(ED) Time of Disposition: 02:23
--- NOTE | 2021-11-28 09:01 | Electrocardiograph Report ---
[facility] Test Date: 2021-11-27 Test Time: 18:40:52 Pat Name: VERENA ROMERO Department: Room: Gender: M Director Of Manufacturing Operations: VLAD : 1985 Requested By: TEO ZAMORA Order Number: [id number] Reading MD: Moody Tate Measurements Intervals [place] Rate: 72 P: 77 DC: 183 QRS: 73 QRSD: 83 T: 36 QT: 357 QTc: 390 Interpretive Statements Sinus rhythm Probable left atrial enlargement ST elev, probable normal early repol pattern No previous ECG available for comparison Electronically Signed On 11-28-2021 9:00:45 EDT by Moody Tate
== END 2021-11-28 03:08 | disposition home or self-care (01) ==
LOC: ED 18:16
DX: R00.2 Palpitations (principal); Z88.0 Allergy status to penicillin
CPT/HCPCS: 36415; 71046; 80053; 84484; 85007; 85025; 85610; 85730; 93005; 99283